=== PATIENT | female | born 1990 | race Caucasian/White ===

== ENCOUNTER 2018-09-06 15:51 | Emergency (ER) | payer MEDICAID ==
[~2018-09-06] VITALS: Ht 172.7 cm; Wt 57.0 kg
--- NOTE | 2018-09-06 15:52 | NUR ---
CULINARY INTERN DIALLO BOLAÑOS FROM L&D. L&D STAFF WILL COME TO ER TO PERFORM FHT.
--- NOTE | 2018-09-06 15:55 | NUR ---
L&D NURSE MIKY TO DEPT FOR EVAL. PT W/ + SZ HX. HAS HAD 2 SZ TODAY.
[2018-09-06 15:56] VITALS: BP 110/78
--- NOTE | 2018-09-06 16:06 | NUR ---
MANAGER ASSET: PT AMB TO ROOM WITH , GAIT STEADY. L&D RN EVALUATING PT IN ED ROOM 25 AT THIS TIME
[2018-09-06 16:19] LABS: BASOPHILS # (AUTO) 0.04 x10^3/uL (0-0.1); BASOPHILS % (AUTO) 0 % (0-1); EOSINOPHILS # (AUTO) 0.02 x10^3/uL (0-0.4); EOSINOPHILS % (AUTO) 0 % (1-7); LYMPHOCYTES # (AUTO) 1.38 x10^3/uL (1-3.4); LYMPHOCYTES % (AUTO) 11 % (22-44); MD NO; MEAN CORPUSCULAR HEMOGLOBIN 28.5 pg (27.0-34.8); MEAN CORPUSCULAR HGB CONC 32.9 g/dL (32.4-35.8); MEAN CORPUSCULAR VOLUME 86.7 fL (80-100); MEAN PLATELET VOLUME 8.6 fL (7.4-10.4); MONOCYTES # (AUTO) 0.59 x10^3/uL (0.2-0.8); MONOCYTES % (AUTO) 5 % (2-9); NEUTROPHILS % (AUTO) 85 % (42-75); PLATELET COUNT 278 x10^3/uL (130-400); RED BLOOD COUNT 4.71 x10^6/uL (3.82-5.3); RED CELL DISTRIBUTION WIDTH 13.3 % (9.6-15.2)
--- NOTE | 2018-09-06 16:24 | NUR ---
patient safe in bed, accompanied by male partner, 2x seizures today, 2 yrs since last seizure, patient reports no discomfort or concerns for self at this time, MD Sen at bedside now, patient states she has come to ER for a baby check, she feels ok. Patient states L&D nurse has come to bedside and checked FHT and baby was alright per that nurse.
[2018-09-06 16:30] LABS: ALBUMIN 3.1 g/dL (3.4-5.0); ANION GAP 8 mmol/L (5-15); CALCIUM 8.9 mg/dL (8.5-10.1); CHLORIDE 107 mmol/L (98-107); CREATININE 0.57 mg/dL (0.55-1.02)
[2018-09-06 17:06] LABS: ALBUMIN 3.1 g/dL (3.4-5.0); BILIRUBIN, DIRECT 0.1 mg/dL (0.1-0.2)
--- NOTE | 2018-09-06 17:06 | NUR ---
ITZEL RN: JESSIE SENT TO LAB
[2018-09-06 17:08] LABS: BILIRUBIN,TOTAL 0.2 mg/dL (0.2-1.0); TOTAL PROTEIN 7.3 g/dL (6.4-8.2)
[2018-09-06 17:16] LABS: MICROSCOPIC INDICATED
[2018-09-06 17:24] LABS: BILIRUBIN,INDIRECT 0.1 mg/dL (0.0-2.0)
[2018-09-06 17:27] LABS: CULTURE INDICATED? YES
== END 2018-09-06 18:53 | disposition home or self-care (01) ==
LOC: ED 16:43
DX: O26.892 Other specified pregnancy related conditions, second trimester (principal); R56.9 Unspecified convulsions; Z3A.22 22 weeks gestation of pregnancy
CPT/HCPCS: 36415; 80048; 80076; 81001; 82040; 85025; 87086; 99283